=== PATIENT | male | born 1975 | race Two or more races ===

== ENCOUNTER 2020-01-18 14:39 | Emergency (ER) | payer MEDICAID ==
[~2020-01-18] VITALS: Ht 170.2 cm; Wt 57.0 kg
[2020-01-18] MEDS ORDERED: ACETAMINOPHEN WITH CODEINE 300/30MG TABLET PO ONE (18:00)
[2020-01-18 18:06] VITALS: BP 143/105
== END 2020-01-18 18:08 | disposition home or self-care (01) ==
LOC: ER 14:39
DX: K02.9 Dental caries, unspecified (principal); K08.89 Other specified disorders of teeth and supporting structures
CPT/HCPCS: 99283